=== PATIENT | male | born 1995 | race Caucasian/White ===

== ENCOUNTER 2019-11-11 03:13 | Emergency (ER) | payer BC, OTHER ==
[2019-11-11 03:32] VITALS: BP 158/90; PULSE 110; TEMP 98.3; BMI 24.3
--- NOTE | 2019-11-11 03:34 | PDOC ---
History of Present Illness - General Chief Complaint: Palpitations Stated Complaint: PALPITATIONS AFTER DOING COCAINE, KETAMINE Time Seen by Provider: 11/11/19 03:31 History Source: Patient Exam Limitations: No Limitations - History of Present Illness Initial Comments: This is a 24-year-old male brought in by EMS for evaluation of a rapid heart rate. By the time patient got here his heart rate was 8109. Patient said that he did do cocaine and ketamine prior to arrival. Patient's was with him and she gave him some clonidine. Otherwise patient denied any chest pain, cough, congestion fever chills nausea vomiting diarrhea or shortness of breath. Patient wanted to leave it soon as he got here as he said he was feeling better already. Allergies: as per nursing notes Past Medical History: none Social history: Lives with family. No smoking. No alcohol. No illicit drugs. Surgical history: None General: No fevers or chills, no weakness, no weight loss HEENT: No change in vision. No sore throat,. No ear pain CardioVascular: no chest discomfort. No shortness of breath Respiratory:No cough, or wheezing. Gastrointestinal: no nausea, vomiting, diarrhea or constipation, No rectal bleeding Genitourinary: No dysuria, hematuria, or frequency Musculoskeletal: No joint or muscle pain or swelling Neurologic: No headache, vertigo, dizziness or loss of consciousness Psychiatric: nor depression Skin: No rashes or easy bruising Endocrine: no increased thirst or abnormal weight change Allergic: no skin or latex allergy All other systems reviewed and normal Exam: General: Well-nourished well-developed individual, no acute distress HEENT: Throat: Normal, tonsils normal, no erythema or exudate Neck: Supple, no meningeal signs, no lymphadenopathy Eyes::Pupils equal reactive and round, extraocular motion intact Chest: Nontender to palpation Cardiac: S1-S2 normal, regular rate and rhythm, no murmurs rubs or gallops Respiratory: Lungs clear to auscultation bilateral Abdomen: Soft, nondistended, normal bowel sounds, there is no tenderness on palpation diffusely Extremities: Warm, dry, no cyanosis, clubbing, or edema Skin: No rashes Neuro: Alert and oriented x3, CN II - XII intact, nonfocal exam with normal strength, normal sensation, normal reflexes, normal gait, Psych: Normal mood and affect Past History - Medical History Allergies/Adverse Reactions: Allergies Allergy/AdvReac Type Severity Reaction Status Date / Time No Known Allergies Allergy Verified 08/29/11 17:45 Home Medications: Ambulatory Orders Amox Tr/Potassium Clavulanate [Augmentin 875-125 Tablet] 1 each PO BID #14 tablet 08/29/11 Amphet Asp/Amphet/D-Amphet [Adderall 20 mg Tablet] 20 mg PO DAILY 08/29/11 Oxycodone HCl/Acetaminophen [Percocet 5-325 mg Tablet] 1 each PO HS #5 tablet 08/29/11 Cephalexin [Keflex] 500 mg PO QID #28 capsule 01/21/15 - Immunization History Immunization Up to Date: Yes - Psycho-Social/Smoking History Smoking Status: No Smoking History: Never smoked Have you smoked in the past 12 months: Yes Number of Cigarettes Smoked Daily: 0 'Breaking Loose' booklet given: 06/18/15 Discharge - Discharge Information Problems reviewed: Yes Clinical Impression/Diagnosis: Polysubstance abuse, Palpitations Condition: Stable Disposition: HOME - Admission No - Follow up/Referral - Patient Discharge Instructions Additional Instructions: Return to the emergency department immediately with ANY new, persistent or worsening symptoms. Continue any medications as previously prescribed by your physician. You should follow up with your primary doctor as soon as possible regarding today's emergency department visit. . Please make sure your doctor reviews the results of your emergency evaluation. Thank you for coming to the Emergency Department today for your care. It was a pleasure to see you today. Please note that your evaluation is INCOMPLETE until you follow-up with your doctor. - Post Discharge Activity
== END 2019-11-11 03:39 | disposition home or self-care (01) ==
LOC: FER 03:13
DX: F19.10 Other psychoactive substance abuse, uncomplicated (principal); R00.2 Palpitations
CPT/HCPCS: 99282-25